=== PATIENT | female | born 1980 | race American Indian/Alaskan Native ===

== ENCOUNTER 2019-04-10 08:12 | Emergency (ER) | payer OTHER ==
[2019-04-10] MEDS ORDERED: ASPIRIN 325 MG TAB PO ONE (08:35)
--- NOTE | 2019-04-10 09:07 | XRay Report ---
CHEST 1 VIEW 04/10/2019 9:03 AM INDICATION / CLINICAL INFORMATION: Chest Pain. COMPARISON: None available. FINDINGS: SUPPORT DEVICES: None. HEART / MEDIASTINUM: No significant abnormality. LUNGS / PLEURA: No significant pulmonary or pleural abnormality. No pneumothorax. ADDITIONAL FINDINGS: No significant additional findings. IMPRESSION: 1. No acute findings. Signer Name: Alfred Up MD Signed: 04/10/2019 9:02 AM Workstation Name: [id number]
[2019-04-10 09:23] LABS: Basophils # (Auto) 0.1 K/mm3 (0.0-0.1); Basophils % (Auto) 0.9 % (0.0-1.8); Eosinophils # (Auto) 0.2 K/mm3 (0.0-0.4); Eosinophils % (Auto) 2.7 % (0.0-4.3); Hematocrit 44.8 % (30.3-42.9); Hemoglobin 15.1 gm/dl (10.1-14.3); Lymphocytes # (Auto) 2.2 K/mm3 (1.2-5.4); Lymphocytes % (Auto) 25.8 % (13.4-35.0); Mean Corpuscular HGB Conc 34 % (30-34); Mean Corpuscular Volume 86 fl (79-97); Monocytes # (Auto) 0.6 K/mm3 (0.0-0.8); Platelet Count 216 K/mm3 (140-440); Red Blood Count 5.18 M/mm3 (3.65-5.03); Red Cell Distribution Width 13.6 % (13.2-15.2)
[2019-04-10 09:45] LABS: BUN/Creatinine Ratio 14; Blood Urea Nitrogen 10 mg/dL (7-17); Calcium 9.7 mg/dL (8.4-10.2); Hemolysis Index 7
[2019-04-10] MEDS ORDERED: ASPIRIN 325 MG TAB ONE (11:54)
[2019-04-10] MEDS ORDERED: ACETAMINOPHEN 325 MG TAB PO ONE (12:57)
[2019-04-10] MEDS ORDERED: FAMOTIDINE 20 MG TAB PO ONE (12:57)
[2019-04-10] MEDS ORDERED: IBUPROFEN 600 MG TAB PO ONE (12:57)
--- NOTE | 2019-04-10 13:03 | Emergency Department Report ---
ED Chest Pain HPI - General Chief Complaint: Chest Pain Stated Complaint: HEADACHE/CHEST/SHOULDER PAIN Time Seen by Provider: 04/10/19 11:50 Source: patient, RN notes reviewed Mode of arrival: Ambulatory Limitations: No Limitations - History of Present Illness Initial Comments: During the history and physical, I am chaperoned and escorted by nurse Noam Quintana The patient is a 39-year-old female, right-hand dominant, not known to this provider previously, reports that she is not , reports that she has not livery given breath within the past 6 weeks. She also reports no DVT or pulmonary embolism risk factors. She presents to the ER with 3 complaints. Her first complaint is left-sided intermittent chest wall pain, present for 4-5 d ays, aching in nature, intermittent, without exacerbating or relieving factors, without radiation to the back, arms or neck. There is no vomiting, diaphoresis or exertional shortness of breath. Her is no oral contraceptive use, there is no posterior leg pain or leg swelling, no recent surgeries, or mobilization, and there is no personal or family history of DVT, pulmonary embolism, which ischemi c heart disease that she is aware of. She is pain-free at this time. She endorses intermittent heart racing and palpitations, and is concerned "I might have anxiety." Her second complaint is nontraumatic right-sided shoulder pain, present for 1 month. The pain is throbbing, intermittent, does not radiate anywhere, increases with range of motion and decreases with rest. There is no redness, p us, streaking or weakness, there is no trauma, she is not really having shoulder pain at this time. Her third complaint is nontraumatic headache, present for 2 weeks, intermittent, bitemporal and frontal, not sudden or thunderclap in nature, not maximal in intensity, and not described as most intense headache of her life. There is no loss of vision, there are no other neurologic complaints, there is no weakness, numbness or ataxia, is no slurred speech. Patient is asking to go home. MD Complaint: chest pain -: Gradual Onset: during rest Pain Location: left chest Pain Radiation: none Severity: mild Quality: heaviness Consistency: intermittent Improves With: other Worsens With: other Context: other Aspirin use within the Past 7 Days: (0) No - Related Data Previous Rx's Medication Instructions Recorded Last Taken Type Acetaminophen [Non-Aspirin Extra 500 mg PO Q6HR PRN #30 tablet 04/10/19 Unknown Rx Strength] Famotidine [Pepcid] 20 mg PO BID #10 tablet 04/10/19 Unknown Rx Ibuprofen [Motrin] 600 mg PO Q8H PRN #30 tablet 04/10/19 Unknown Rx Allergies Allergy/AdvReac Type Severity Reaction Status Date / Time No Known Allergies Allergy Unverified 04/10/19 08:26 Heart Score - HEART Score History: Slightly suspicious EKG: Normal Age: < 45 Risk factors: No known risk factors Troponin: < normal limit HEART Score: 0 - Critical Actions Critical Actions: 0-3 pts:0.9-1.7%risk of adverse cardiac event.Candidate for discharge ED Review of Systems ROS: Stated complaint: HEADACHE/CHEST/SHOULDER PAIN Other details as noted in HPI Constitutional: denies: fever Eyes: denies: eye discharge ENT: denies: congestion Respiratory: denies: wheezing Cardiovascular: chest pain. denies: syncope Gastrointestinal: denies: nausea, vomiting Genitourinary: denies: dysuria Musculoskeletal: arthralgia Neurological: denies: numbness, paresthesias Psychiatric: anxiety Hematological/Lymphatic: denies: easy bleeding ED Past Medical Hx - Past Medical History Additional medical history: cardiac arythmia - Social History Smoking Status: Current Some Day Smoker Substance Use Type: None - Medications Home Medications: Home Medications Medication Instructions Recorded Confirmed Last Taken Type Acetaminophen [Non-Aspirin Extra 500 mg PO Q6HR PRN #30 tablet 04/10/19 Unknown Rx Strength] Famotidine [Pepcid] 20 mg PO BID #10 tablet 04/10/19 Unknown Rx Ibuprofen [Motrin] 600 mg PO Q8H PRN #30 tablet 04/10/19 Unknown Rx ED Physical Exam - General Limitations: No Limitations General appearance: alert, in no apparent distress - Head Head exam: Present: atraumatic, normocephalic - Eye Eye exam: Present: normal appearance, EOMI. Absent: nystagmus - ENT ENT exam: Present: normal exam, normal orophraynx, mucous membranes moist, normal external ear exam - Neck Neck exam: Present: normal inspection, full ROM. Absent: tenderness, meningismus - Respiratory Respiratory exam: Present: normal lung sounds bilaterally, chest wall tenderness, other (during the breast examination, chaperoned and escorted by nurse: Noam Quintana There is no redness, pus or streaking or tenderness. There are no masses noted.). Absent: respiratory distress - Cardiovascular Cardiovascular Exam: Present: regular rate, normal rhythm, normal heart sounds. Absent: bradycardia, tachycardia, irregular rhythm, systolic murmur, diastolic murmur, rubs, gallop - GI/Abdominal GI/Abdominal exam: Present: soft. Absent: distended, tenderness, guarding, rebound, rigid, pulsatile mass - Extremities Exam Extremities exam: Present: normal inspection, full ROM, other (2+ pulses noted in the bilateral upper and lower extremities. The pelvis is stable. There is no long bony tenderness. The muscular compartments are soft. There is no redness, pus, streaking or erythema.). Absent: pedal edema, joint swelling, calf tenderness - Back Exam Back exam: Present: normal inspection, full ROM, other (there is no redness, pus or streaking noted). Absent: tenderness, CVA tenderness (L), paraspinal tenderness, vertebral tenderness - Neurological Exam Neurological exam: Present: alert, oriented X3, normal gait, other (there is no facial droop. The tongue is midline. Extraocular movements are intact bilate rally. Speaking in full sentences. Hearing is grossly intact. 5 out of 5 strength bilateral upper and lower extremities. Sensation is intact to light touch bilateral upper and lower extremities.). Absent: motor sensory deficit - Psychiatric Psychiatric exam: Present: normal affect, normal mood - Skin Skin exam: Present: warm, dry, intact, normal color. Absent: rash ED Course Vital Signs 04/10/19 04/10/19 04/10/19 08:25 08:26 11:46 Temperature 98.6 F 98.6 F Pulse Rate 110 H 104 H 90 Respiratory 18 16 15 Rate Blood Pressure 141/91 141/91 Blood Pressure [Left] O2 Sat by Pulse 100 99 Oximetry 04/10/19 04/10/19 04/10/19 11:47 12:01 12:15 Temperature Pulse Rate 92 H 95 H Respiratory 16 12 Rate Blood Pressure 123/81 123/81 Blood Pressure 123/81 [Left] O2 Sat by Pulse 99 100 Oximetry 04/10/19 04/10/19 12:45 13:02 Temperature Pulse Rate 84 Respiratory 22 Rate Blood Pressure 105/72 116/80 Blood Pressure [Left] O2 Sat by Pulse Oximetry FREDDIE score - Freddie Score Age > 65: (0) No Aspirin use within the Past 7 Days: (0) No 3 or more CAD Risk Factors: (0) No 2 or more Angina events in past 24 hrs: (0) No Known CAD with more than 50% Stenosis: (0) No Elevated Cardiac Markers: (0) No ST Deviation Greater than 0.5mm: (0) No FREDDIE Score: 0 ED Medical Decision Making - Lab Data Result diagrams: 04/10/19 08:43 04/10/19 08:43 Vital Signs 04/10/19 04/10/19 04/10/19 08:25 08:26 11:46 Temperature 98.6 F 98.6 F Pulse Rate 110 H 104 H 90 Respiratory 18 16 15 Rate Blood Pressure 141/91 141/91 Blood Pressure [Left] O2 Sat by Pulse 100 99 Oximetry 04/10/19 04/10/19 04/10/19 11:47 12:01 12:15 Temperature Pulse Rate 92 H 95 H Respiratory 16 12 Rate Blood Pressure 123/81 123/81 Blood Pressure 123/81 [Left] O2 Sat by Pulse 99 100 Oximetry 04/10/19 04/10/19 12:45 13:02 Temperature Pulse Rate 84 Respiratory 22 Rate Blood Pressure 105/72 116/80 Blood Pressure [Left] O2 Sat by Pulse Oximetry Lab Results 04/10/19 04/10/19 04/10/19 Range/Units 08:43 08:43 08:43 WBC 8.6 (4.5-11.0) K/mm3 RBC 5.18 H (3.65-5.03) M/mm3 Hgb 15.1 H (10.1-14.3) gm/dl Hct 44.8 H (30.3-42.9) % MCV 86 (79-97) fl MCH 29 (28-32) pg MCHC 34 (30-34) % RDW 13.6 (13.2-15.2) % Plt Count 216 (140-440) K/mm3 Lymph % (Auto) 25.8 (13.4-35.0) % [place] % (Auto) 7.0 (0.0-7.3) % Eos % (Auto) 2.7 (0.0-4.3) % Baso % (Auto) 0.9 (0.0-1.8) % Lymph # 2.2 (1.2-5.4) K/mm3 [place] # 0.6 (0.0-0.8) K/mm3 Eos # 0.2 (0.0-0.4) K/mm3 Baso # 0.1 (0.0-0.1) K/mm3 Seg Neutrophils % 63.6 (40.0-70.0) % Seg Neutrophils # 5.5 (1.8-7.7) K/mm3 Sodium 139 (137-145) mmol/L Potassium 4.4 (3.6-5.0) mmol/L Chloride 102.3 (98-107) mmol/L Carbon Dioxide 21 L (22-30) mmol/L Anion Gap 20 mmol/L BUN 10 (7-17) mg/dL Creatinine 0.7 (0.7-1.2) mg/dL Estimated GFR > 60 ml/min BUN/Creatinine Ratio 14 % Glucose 93 (65-100) mg/dL Calcium 9.7 (8.4-10.2) mg/dL Troponin T < 0.010 (0.00-0.029) ng/mL HCG, Qual Negative (Negative) - EKG Data -: EKG Interpreted by Id EKG shows normal: sinus rhythm Rate: normal - EKG Data 04/10/19 14:34 EKG #1 shows a normal sinus rhythm, 93 bpm, normal axis, QTC 411 ms, borderline high left ventricular voltage, there is no prior for comparison, the EKG is not consistent with STEMI. EKG #2 is unchanged from prior. Both EKGs are within normal limits for the patient's age and demographic, not consistent with stemi - Radiology Data Radiology results: pending, report reviewed, image reviewed X-ray the chest is negative for acute disease - Medical Decision Making Differential diagnosis, including not limited to: GERD, gastritis, hiatal hernia, costochondritis, pneumonia, acute coronary syndrome, migraine headache, tension headache, cluster headache, musculoskeletal right shoulder pain Assessment and plan: 39-year-old female with multiple complaints In terms of chest pain, no pulmonary embolism or DVT risk factors, low risk by well's criteria, tachycardia resolved, not tachypneic, hypoxic, unlikely to be a pulmonary embolism. Chest pain is intermittent over the past 4-5 days. Troponin negative 1, EKG unchanged 2, as per the [employer] clinical policy, myocardial infarction may be ruled out with one set of cardiac enzymes if symptoms present for greater than 8 hours. Patient at low risk for major adverse cardiac event as per the heart score. Has equal pulses in the upper and lower extremities, unremarkable x-ray the chest, very unlikely to be aortic disease. She can follow-up with an outpatient primary care doctor or statistical geneticist to complete a cardiac risk stratification. In terms of headache, headache is present for a few weeks, she has a GCS of 15, with no focal neurologic deficits, there is no pass pointing, there is normal [id number], there is no pronator drift, GCS of 15, with no neck pain or stiffness, or red flag hysterical factors. The headache can be treated supportively and symptomatically, and does not appear to represent an emergency medical condition. In terms of her right shoulder pain, there is no redness, pus or streaking, she has full range of motion, without obvious anatomic defects, this can as supportively and symptomatically. Critical care attestation.: If time is entered above; I have spent that time in minutes in the direct care of this critically ill patient, excluding procedure time. ED Disposition Clinical Impression: History of chest pain, Right shoulder pain, Headache Disposition: DC- TO HOME OR SELFCARE Is pt being admited?: No Does the pt Need Aspirin: No Condition: Stable Additional Instructions: Rest, avoid heavy lifting, and avoid strenuous physical activities. Participate in physical activities as tolerated. For the time being, avoid consumption of heavy and/or spicy foods and minimize alcohol consumption. Recommend follow-up with a primary care doctor or statistical geneticist within the next 3-5 days. Please return to the emergency room right away with projectile vomiting, change in mental status, confusion, inability to tolerate liquid feeds. Patient may take the prescribed medications as needed for pain. In terms of the patient's headache, recommend minimizing computer, cell phone and tablet exposure, to tasks and extremities which are absolutely essential professionally Would recommend avoidance of recreational cell phone a computer activity and exposure. Range of motion as tolerated in the right upper extremity, avoid excessively heavy lifting. Referrals: [facility] [Provider Group] - 3-5 Days [facility], [Provider Group] - 3-5 [facility] - 3-5 Days Forms: Work/School Release Form(ED)
[2019-04-10 13:19] VITALS: BP 116/80
== END 2019-04-10 14:46 | disposition home or self-care (01) ==
LOC: ED 08:12
DX: R07.89 Other chest pain (principal); M25.511 Pain in right shoulder; R51 Headache; F17.200 Nicotine dependence, unspecified, uncomplicated; Z79.899 Other long term (current) drug therapy
CPT/HCPCS: 36415; 71045; 80048; 84484; 84703; 85025; 93005; 93010